=== PATIENT | female | born 1960 | race Caucasian/White ===

== ENCOUNTER 2018-05-18 00:47 | Inpatient (IN) | payer OTHER ==
[~2018-05-18] VITALS: Ht 152.4 cm; Wt 74.8 kg
--- NOTE | ~2018-05-18 | PN ---
[place], [place] PROGRESS NOTE NAME: SANJUANA LOBO UNIT #: [id number] ROOM: 310 DOCTOR: WILLEM GARG MD BIRTHDATE: [birth year] DATE: 05/23/18 ADDENDUM 07/04/18933 DR. GARG: Above note reviewed. Agree with observations, recommendations, and overall treatment plan. WILLEM GARG MD CM:PNTRANS 3 WILLEM GARG MD 07/05/18 0556 ANDREI ALBERTO MIS.LLR
--- NOTE | ~2018-05-18 | PN ---
[place], [place] PROGRESS NOTE NAME: SANJUANA LOBO UNIT #: [id number] ROOM: 310 DOCTOR: WILLEM GARG MD BIRTHDATE: [birth year] DATE: 05/22/18 ADDENDUM 07/04/18933 DR. GARG: Above note reviewed. Agree with observations, recommendations, and overall treatment plan. WILLEM GARG MD CM:PNTRANS 3 WILLEM GARG MD 07/05/18 0555 ANDREI ALBERTO MIS.LLR
--- NOTE | ~2018-05-18 | DS ---
[place], [place] DISCHARGE SUMMARY NAME: SANJUANA LOBO UNIT #: [id number] ROOM: 310 DOCTOR: WILLEM GARG MD BIRTHDATE: [birth year] DOS: 05/24/2018 DATE OF ADMISSION: 05/18/2018 DATE OF DISCHARGE: 05/24/2018 CHIEF COMPLAINT: "I'm just so depressed, I can't go on like this." HISTORY OF PRESENT ILLNESS: This is a 57-year-old black female who was admitted to the [facility] at [facility] on a pink slip from [facility]. The patient had gone to her primary care physician and voiced comments that she just wished she would end it all and was not going to take her insulin in the hopes of inducing a coma and dying. The patient stated that she has been very despondent over losing her job recently and not being able to pay her bills. She has a very poor support system. She does have a history of 2 previous suicide attempts and does endorse significant neurovegetative symptoms that include poor sleep and appetite, anergia, anhedonia, hopeless, helpless feelings and positive suicidal thoughts with a plan. The patient was admitted to rule out any organic factors and to attempt to stabilize on medication. SUMMARY OF THE HOSPITAL COURSE: The patient was admitted to the unit where screening examination showed her to have a low vitamin D level, so vitamin D 50,000 International Units weekly was started. She did endorse significant chronic pain issues with neuropathy and carpal tunnel being the cause of the pain. For this reason, she was started on Cymbalta 30 mg at bedtime. Over the course of her stay, the dose of the Cymbalta was rapidly titrated up to its maximum dose at discharge of 30 mg in the morning and 60 mg at bedtime. Additionally, Zostrix High Potency cream was utilized to help with the pain as well. She improved dramatically with this combination. Her mood lifted, the suicidal thoughts dissipated. She slept well. She ate well and was able to engage in individual and redman activities. She voiced positive plans for the future and in fact openly requested a [facility] referral, so that she can get a job training and placement post-discharge. The patient was discharged to return home stable medically and psychiatrically. MENTAL STATUS AT DISCHARGE: The patient is alert and oriented. Mood is euthymic. Affect is appropriate. There is no ronnie or hypomania. There are no psychotic symptoms. She convincingly denies suicidal thoughts, homicidal thoughts or any self-injurious thoughts and memory is fully intact. DISCHARGE DIAGNOSES: Major depression, recurrent, severe. PLAN: The patient is discharged home. She will have followup both psychiatrically and with counseling at [facility]. Her scripts have been e-scribed to [facility]. At the time of discharge, she was medically stable, psychiatrically stable and her biopsychosocial needs were adequately being met. [place], [place] DISCHARGE SUMMARY NAME: SANJUANA LOBO UNIT #: [id number] ROOM: 310 DOCTOR: WILLEM GARG MD BIRTHDATE: [birth year] WILLEM GARG MD CM:DISCHIGLESIA [id number] WILLEM GARG MD 05/24/18 0947 interface
--- NOTE | ~2018-05-18 | PR ---
[place], [place] PROGRESS NOTE NAME: SANJUANA LOBO UNIT #: [id number] ROOM: 314 DOCTOR: WILLEM GARG MD BIRTHDATE: [birth year] DOS: 05/20/2018 INTERVAL NOTE CHIEF COMPLAINT: "I know I have just been feeling depressed, I said some things I should not have." SUMMARY OF THE VISIT: The patient was interviewed in the dining area. She reports to me that she continues to feel depressed and made some statements that she feels remorse more. She also complained of some nausea this morning and did state that she threw up first thing in the morning. Otherwise, she reports that she slept well and notes no other issues. MENTAL STATUS: She is alert and oriented with some depression being very prominent. Her affect is flat and blunted and constricted. There is some anxiety present. There is no hypomania, ronnie. There are no auditory or visual hallucinations. No delusions, no paranoia. Memory for the most part is intact. PLAN: We will increase Cymbalta from 30 to 60 mg at bedtime. We will continue to engage in individual and redman milieu activity, returning to the least restrictive environment when psychiatrically stable. WILLEM GARG MD CM:PNTRANS [id number] WILLEM GARG MD 05/20/18 2240 interface
--- NOTE | ~2018-05-18 | PN ---
[place], [place] PROGRESS NOTE NAME: SANJUANA LOBO UNIT #: [id number] ROOM: 310 DOCTOR: WILLEM GARG MD BIRTHDATE: [birth year] DATE: 05/21/18 ADDENDUM 07/04/1834 DR. GARG: Above note reviewed. Agree with observations, recommendations, and overall treatment plan. WILLEM GARG MD CM:PNTRANS 0554 WILLEM GARG MD 07/05/18 0556 ANDREI ALBERTO MIS.LLR
[2018-05-18] MEDS ORDERED: Zofran4 MG SL (01:17)
[2018-05-18] MEDS ORDERED: TOUJEO SOL300 UNIT/1 SQ (01:18)
[2018-05-18] MEDS ORDERED: ASPIR LOW81 MG PO (01:19)
[2018-05-18] MEDS ORDERED: PROTONIX40 MG PO (01:20)
[2018-05-18] MEDS ORDERED: GLUCOPHAGE1000 MG PO (01:21)
[2018-05-18] MEDS ORDERED: HUMALOG100 UNIT/1 SQ (01:22)
[2018-05-18] MEDS ORDERED: NEURONTIN300 MG PO (01:25)
[2018-05-18] MEDS ORDERED: ZOCOR10 MG PO (01:25)
[2018-05-18] MEDS ORDERED: VITAMIN E400 UNI1 PO (01:26)
[2018-05-18] MEDS ORDERED: FLONASE ALLERG9.9 ML NAS (01:27)
[2018-05-18] MEDS ORDERED: DICYCLOMINE HCL10 MG PO (01:28)
[2018-05-18] MEDS ORDERED: SINGULAIR10 M1 PO (01:29)
[2018-05-18] MEDS ORDERED: ZESTRIL,PRINIVIL5 MG PO (01:29)
[2018-05-18] MEDS ORDERED: BUSPAR15 MG PO (01:30)
[2018-05-18] MEDS ORDERED: LOPRESSOR25 MG PO (01:31)
[2018-05-18] MEDS ORDERED: COMPAZINE10 M1 PO (01:31)
[2018-05-18 13:40] VITALS: BP 121/70
[2018-05-18 14:07] VITALS: BP 121/70
[2018-05-18 20:18] VITALS: BP 118/70
[2018-05-19 05:59] LABS: BASO # 0.1 10*3/uL (0.0-0.1); BASO % 0.9 % (0.0-1.0); EOS # 0.2 10*3/uL (0.0-0.4); EOS % 2.2 % (1.0-4.0); HEMATOCRIT 29.3 % (37.0-47.0); HEMOGLOBIN 8.6 g/dl (12.0-16.0); LYMPH # 3.3 10*3/uL (1.3-4.4); LYMPH % 47.6 % (27.0-41.0); MEAN CELL VOLUME 67.5 fl (81.0-99.0); MEAN CORPUSCULAR HGB 19.8 pg (27.0-31.0); MEAN CORPUSCULAR HGB CONC 29.4 g/dl (33.0-37.0); MEAN PLATELET VOLUME 10.7 fl (9.6-12.3); MONO # 0.9 10*3/uL (0.1-1.0); MONO % 12.7 % (3.0-9.0); NEUT # 2.5 10*3/uL (2.3-7.9); NEUT % 36.5 % (47.0-73.0); PLATELET COUNT AUTOMATED 389 10*3/uL (130-400); RED BLOOD COUNT 4.34 10*6/uL (4.10-5.10); RED CELL DISTRI WIDTH 19.5 % (0-14.5); WHITE BLOOD COUNT 6.9 10*3/uL (4.8-10.8)
[2018-05-19 06:06] LABS: ALBUMIN 3.1 gm/dl (3.1-4.5); ALKALINE PHOSPHATASE 173 U/L (45-117); BUN 13 mg/dl (7-24); CHLORIDE 106 mmol/L (98-107); CHOLESTEROL 186 mg/dL (<200); CREATININE 1.08 mg/dL (0.55-1.02); HDL CHOLESTEROL 36 mg/dl (40-60); LDL CHOLESTEROL 117 mg/dL (9-159); POTASSIUM 4.1 mmol/L (3.5-5.1); SGOT/AST 26 IU/L (3-35); SGPT/ALT 27 U/L (12-78); SODIUM 139 mmol/L (136-145); TOTAL PROTEIN 7.6 gm/dL (6.4-8.2); TRIGLYCERIDES 167 mg/dl (<150); VLDL CHOLESTEROL 33 mg/dL (6-40)
[2018-05-19 06:12] LABS: THYROID STIM HORMONE (HS) 0.719 uIU/ml (0.358-4.75)
[2018-05-19 07:42] VITALS: BP 114/68
[2018-05-19 07:59] LABS: VITAMIN D, 25-HYDROXY 12.9 ng/mL (30-100)
[2018-05-19 18:20] LABS: BILIRUBIN NEGATIVE (NEGATIVE); BLOOD NEGATIVE (NEGATIVE); CLARITY CLEAR (CLEAR); COLOR YELLOW (YELLOW); GLUCOSE 3+ (NEGATIVE); KETONE NEGATIVE (NEGATIVE); LEUKO ESTERASE 2+ (NEGATIVE); NITRITE NEGATIVE (NEGATIVE); PH 5.5 (5.0-9.0); UROBILINOGEN 0.2 E.U./dl (0.2-1.0)
[2018-05-19 18:29] LABS: BACTERIA 1+; EPITHELIAL CELLS 0-2
[2018-05-19 20:00] VITALS: BP 110/60
[2018-05-20 07:46] VITALS: BP 112/64
[2018-05-20 19:49] VITALS: BP 150/86
[2018-05-21 07:52] VITALS: BP 132/74
[2018-05-21 20:03] VITALS: BP 128/72
[2018-05-22 07:56] VITALS: BP 118/66
[2018-05-22 20:03] VITALS: BP 119/66
[2018-05-22 20:36] VITALS: BP 119/66
[2018-05-23 07:18] VITALS: BP 102/73
[2018-05-23 20:00] VITALS: BP 135/75
[2018-05-24 08:07] VITALS: BP 127/69
[2018-05-24] MEDS ORDERED: DULOXETINE HCL30 MG PO (08:47)
[2018-05-24] MEDS ORDERED: DULOXETINE HCL60 MG PO (08:47)
[2018-05-24] MEDS ORDERED: Zostrix 0.1% T (08:47)
[2018-05-24 09:07] LABS: NEURONTIN (GABAPENTIN) 4.1 ug/mL (4.0-16.0)
== END 2018-05-24 12:23 | disposition home or self-care (01) | DRG 885 ==
LOC: 3N 00:47
PROVIDERS: Psychiatry & Neurology Psychiatry; Registered Nurse
DX: F33.2 Major depressive disorder, recurrent severe without psychotic features (principal); E11.40 Type 2 diabetes mellitus with diabetic neuropathy, unspecified; E55.9 Vitamin D deficiency, unspecified; G89.29 Other chronic pain; G56.00 Carpal tunnel syndrome, unspecified upper limb; K21.9 Gastro-esophageal reflux disease without esophagitis; E78.5 Hyperlipidemia, unspecified; I10 Essential (primary) hypertension; E66.9 Obesity, unspecified; E11.65 Type 2 diabetes mellitus with hyperglycemia; F41.9 Anxiety disorder, unspecified; Z87.891 Personal history of nicotine dependence; Z79.899 Other long term (current) drug therapy; Z79.4 Long term (current) use of insulin; Z79.82 Long term (current) use of aspirin; Z68.32 Body mass index [BMI] 32.0-32.9, adult